=== PATIENT | female | born 1970 ===

== ENCOUNTER 2021-03-27 15:35 | Emergency (ER) | payer OTHER ==
[~2021-03-27] VITALS: Ht 157.5 cm; Wt 88.5 kg
[2021-03-27 19:47] VITALS: BP 131/90
[2021-03-27] MEDS ORDERED: IBUPROFEN 800 MG TAB PO ONE (20:15)
[2021-03-27] MEDS ORDERED: ACETAMINOPHEN 500 MG TAB PO ONE (20:15)
[2021-03-27] MEDS ORDERED: cefTRIAXone SOD 1,000 MG VL IM ONE (20:15)
== END 2021-03-27 22:08 | disposition home or self-care (01) ==
LOC: ER 15:35
DX: L05.91 Pilonidal cyst without abscess (principal); E66.9 Obesity, unspecified; Z68.35 Body mass index [BMI] 35.0-35.9, adult; I10 Essential (primary) hypertension; E78.5 Hyperlipidemia, unspecified; Z91.013 Allergy to seafood
CPT/HCPCS: 96372; 99283; J0696